=== PATIENT | female | born 1985 | race Two or more races ===

== ENCOUNTER 2019-04-16 19:06 | Inpatient (IN) | payer MEDICAID ==
[~2019-04-16] VITALS: Ht 152.5 cm; Wt 62.6 kg
[2019-04-16] MEDS: DEXT 5%/LR + PITOCIN 20UNITS/L 1,000 ML IV SCH ×2 (18:55→20:44)
[2019-04-16 20:26] LABS: BASOPHILS % 0.4 % (0.0-2.0); EOSINOPHILS % 1.5 % (0.0-5.0); HEMATOCRIT. 41.1 % (36.0-48.0); HEMOGLOBIN. 14.3 g/dL (12.0-16.0); LYMPHOCYTES % 29.8 % (20.0-50.0); MEAN CORPUSCULAR HEMOGLOBIN 32.6 pg (28.0-32.0); MEAN PLATELET VOLUME 9.4 fl (7.4-10.4); MONOCYTES % 10.1 % (2.0-8.0); NEUTROPHILS % 58.2 % (40.0-76.0); PLATELET 181 x1000/uL (130-400); RED BLOOD CELL COUNT 4.37 mill/uL (4.2-5.4); RED CELL DISTRIBUTION WIDTH 13.2 % (11.6-14.6)
[2019-04-16] MEDS ORDERED: METHYLERGONOVINE MALEATE 0.2 MG/ML IM PRN (20:45)
[2019-04-16 20:59] LABS: INR 0.9; PARTIAL THROMBOPLASTIN TIME 27.3 sec (23.4-31.0); PROTHROMBIN TIME 9.8 sec (9.6-11.0)
[2019-04-16 21:30] LABS: HEPATITIS B SURFACE ANTIGEN NEGATIVE
[2019-04-16 21:40] VITALS: BP 111/73
[2019-04-16 23:31] VITALS: BP 111/74
[2019-04-17] MEDS ORDERED: DEXT 5%/LR + PITOCIN 20UNITS/L 1,000 ML IV SCH (00:16)
[2019-04-17] MEDS ORDERED: DIPHENHYDRAMINE 25MG CAPSULE PO PRN (00:30)
[2019-04-17] MEDS ORDERED: METHYLERGONOVINE MALEATE 0.2 MG/ML IM PRN (00:30)
[2019-04-17] MEDS ORDERED: RHO(D) IMMUNE GLOBULIN 300 MCG/SYR IM PRN (00:30)
[2019-04-17] MEDS ORDERED: LANOLIN OINT 7GM TUBE TOP PRN (00:30)
[2019-04-17] MEDS ORDERED: IBUPROFEN 400MG TABLET PO PRN (00:30)
[2019-04-17 00:43] LABS: CLARITY URINE CLOUDY (CLEAR); KETONES URINE NEGATIVE (NEGATIVE); LEUKOCYTE ESTERASE URINE 1+ (NEGATIVE); NITRITE URINE NEGATIVE (NEGATIVE); OCCULT BLOOD URINE 3+ (NEGATIVE); PH URINE 7.5 (4.5-8.0); PROTEIN URINE NEGATIVE (NEGATIVE); SPECIFIC GRAVITY URINE 1.018 (1.005-1.030); UROBILINOGEN URINE 0.2 E.U./dL (0.2-1.0)
[2019-04-17 00:54] LABS: COLOR URINE BLOODY (YELLOW)
[2019-04-17 01:22] LABS: *AMPHETAMINES SCREEN URINE NEGATIVE (NEGATIVE); *BARBITURATES SCREEN URINE NEGATIVE (NEGATIVE); *COCAINE SCREEN URINE NEGATIVE (NEGATIVE); METHADONE URINE SCREEN NEGATIVE (NEGATIVE); OPIATES URINE SCREEN NEGATIVE (NEGATIVE)
[2019-04-17 01:23] LABS: *BENZODIAZEPINES SCREEN URINE NEGATIVE (NEGATIVE); CANNABINOID URINE SCREEN NEGATIVE (NEGATIVE); PHENCYCLIDINE URINE SCREEN NEGATIVE (NEGATIVE)
[2019-04-17] MEDS: IBUPROFEN 800MG TABLET PO PRN ×2 (01:41→16:16)
[2019-04-17 04:15] VITALS: BP 99/60
[2019-04-17 06:16] LABS: BASOPHILS % 0.4 % (0.0-2.0); EOSINOPHILS % 1.3 % (0.0-5.0); HEMATOCRIT. 38.6 % (36.0-48.0); LYMPHOCYTES % 20.7 % (20.0-50.0); MEAN CORPUSCULAR HEMOGLOBIN 31.7 pg (28.0-32.0); MEAN PLATELET VOLUME 8.8 fl (7.4-10.4); MONOCYTES % 7.1 % (2.0-8.0); NEUTROPHILS % 70.5 % (40.0-76.0); PLATELET 164 x1000/uL (130-400); RED BLOOD CELL COUNT 4.11 mill/uL (4.2-5.4); RED CELL DISTRIBUTION WIDTH 13.3 % (11.6-14.6)
[2019-04-17 09:00] VITALS: BP 104/67
[2019-04-17] MEDS: PRENATAL VIT/FE FUMARATE/FA TABLET PO SCH (13:06)
[2019-04-17 17:00] VITALS: BP 102/70
[2019-04-17 19:50] VITALS: BP 102/60
[2019-04-18] MEDS: IBUPROFEN 800MG TABLET PO PRN ×2 (00:53→06:46)
[2019-04-18 04:00] VITALS: BP 101/59
[2019-04-18 07:42] VITALS: BP 106/74
[2019-04-18] MEDS: PRENATAL VIT/FE FUMARATE/FA TABLET PO SCH (09:05)
== END 2019-04-18 11:55 | disposition home or self-care (01) | DRG 560 ==
LOC: OBSVTOIN 19:06 → 8 EST LDRP 19:06 → 8EST 21:19
PROVIDERS: ADMIT Obstetrics & Gynecology; ATTEND Obstetrics & Gynecology
PROC: 10E0XZZ Delivery of Products of Conception, External Approach (ICD-10-PCS; principal; 2019-04-16)
DX: O70.0 First degree perineal laceration during delivery (principal); D64.9 Anemia, unspecified; Z37.0 Single live birth; Z3A.38 38 weeks gestation of pregnancy; O99.02 Anemia complicating childbirth
CPT/HCPCS: 36415; 80305; 86592; 86703; 86762; 86850; 86900; 87340; J2590

== ENCOUNTER 2019-10-19 12:21 | Emergency (ER) | payer MEDICAID ==
[~2019-10-19] VITALS: Ht 165.1 cm; Wt 62.0 kg
[2019-10-19 13:10] VITALS: BP 128/75
[2019-10-19] MEDS ORDERED: BACITRACIN ZINC OINT UDPKT TOP ONE (15:15)
== END 2019-10-19 15:19 | disposition home or self-care (01) ==
LOC: ER 12:21
DX: S60.454A Superficial foreign body of right ring finger, initial encounter (principal); X58.XXXA Exposure to other specified factors, initial encounter; Y93.89 Activity, other specified; Y92.89 Other specified places as the place of occurrence of the external cause; Y99.8 Other external cause status
CPT/HCPCS: 99283; 99284

== ENCOUNTER 2019-12-13 12:03 | Emergency (ER) | payer MEDICAID ==
[~2019-12-13] VITALS: Ht 160 cm; Wt 54.0 kg
[2019-12-13 12:08] VITALS: BP 113/74
== END 2019-12-13 14:14 | disposition home or self-care (01) ==
LOC: ER 12:13
DX: J06.9 Acute upper respiratory infection, unspecified (principal); J02.9 Acute pharyngitis, unspecified; J04.0 Acute laryngitis
CPT/HCPCS: 71045; 81025; 99283

== ENCOUNTER 2025-05-02 21:39 | Emergency (ER) | payer MEDICAID ==
[~2025-05-02] VITALS: Ht 165.1 cm; Wt 62.0 kg
[2025-05-02 22:02] VITALS: RESP 14; O2SAT 98
[2025-05-02 23:03] LABS: BASOPHILS % 0.4 % (0.0-2.0); EOSINOPHILS % 1.8 % (0.0-5.0); HEMATOCRIT. 39.7 % (36.0-48.0); HEMOGLOBIN. 13.4 g/dL (12.0-16.0); LYMPHOCYTES % 21.1 % (20.0-50.0); MEAN CORPUSCULAR HEMOGLOBIN 30.9 pg (28.0-32.0); MEAN CORPUSCULAR HGB CONC 33.9 g/dL (31.0-37.0); MEAN CORPUSCULAR VOLUME 91.1 fL (81.0-99.0); MEAN PLATELET VOLUME 8.9 fl (7.4-10.4); NEUTROPHILS % 71.7 % (40.0-76.0); PLATELET 238 x1000/uL (130-400); RED BLOOD CELL COUNT 4.35 mill/uL (4.2-5.4); RED CELL DISTRIBUTION WIDTH 13.2 % (11.6-14.6); WHITE BLOOD COUNT 6.2 x1000/uL (4.5-11.0)
[2025-05-02 23:11] LABS: CHLORIDE 103 mEq/L (98-107); POTASSIUM 3.6 mEq/L (3.5-5.1); SODIUM 140 mEq/L (136-145)
[2025-05-02 23:12] LABS: CALCIUM 9.6 mg/dL (8.7-10.4); CARBON DIOXIDE 27 mEq/L (21-32); PROTHROMBIN TIME 10.5 sec (9.6-11.0)
[2025-05-02 23:17] LABS: CREATININE 0.7 mg/dL (0.6-1.0); GLUCOSE 151 mg/dL (70-105); UREA NITROGEN BLOOD 11 mg/dL (9-23)
[2025-05-02 23:19] LABS: ALANINE AMINOTRANSFERASE 11 IU/L (10-49); ALBUMIN 4.7 g/dL (3.2-4.8); ASPARTATE AMINOTRANSFERASE 16 IU/L (<34); BILIRUBIN DIRECT < 0.1 mg/dL (<=3.0)
[2025-05-02 23:20] LABS: BILIRUBIN TOTAL 0.4 mg/dL (0.1-1.0); PROTEIN TOTAL 7.4 g/dL (6.0-8.3)
[2025-05-02 23:32] LABS: CLARITY URINE CLOUDY (CLEAR); COLOR URINE YELLOW (YELLOW); GLUCOSE URINE TRACE (NEGATIVE); KETONES URINE NEGATIVE (NEGATIVE); LEUKOCYTE ESTERASE URINE NEGATIVE (NEGATIVE); NITRITE URINE NEGATIVE (NEGATIVE); OCCULT BLOOD URINE NEGATIVE (NEGATIVE); PROTEIN URINE TRACE (NEGATIVE); SPECIFIC GRAVITY URINE 1.033 (1.005-1.030)
[2025-05-02] MEDS: METOCLOPRAMIDE HCL 10MG TABLET PO ONE (23:54)
[2025-05-02] MEDS: ACETAMINOPHEN 500MG TABLET PO ONE (23:54)
[2025-05-02 23:56] VITALS: BP 103/73; PULSE 77; TEMP 36.8; O2SAT 99
[2025-05-03 00:12] LABS: HCG SCREEN NEGATIVE
[2025-05-03] MEDS: SUMATRIPTAN SUCCINATE 25MG TABLET PO ONE (00:13)
[2025-05-03 00:24] LABS: SQUAMOUS EPITHELIAL CELL URINE FEW /lpf (RARE/1+); WBC URINE 0-2 /hpf (0-2)
[2025-05-03 00:25] LABS: AMORPHOUS SEDIMENT URINE 1+ /lpf; RBC URINE NONE SEEN /hpf (0-2)
[2025-05-03 00:29] LABS: TRIPLE PHOSPHATE CRYSTAL URINE 1+ /lpf
[2025-05-03 00:30] LABS: BACTERIA URINE TRACE
[2025-05-03] MEDS ORDERED: ACET-2708 MT (00:49)
[2025-05-03] MEDS ORDERED: IMIT25 MT (00:49)
== END 2025-05-03 01:04 | disposition home or self-care (01) ==
LOC: ER 21:39
DX: R51.9 Headache, unspecified (principal); R11.10 Vomiting, unspecified; Z55.6 Problems related to health literacy; R10.9 Unspecified abdominal pain
CPT/HCPCS: 99284; 80076; 80048; 81003; 81025; 84703; 83690; 85025; 85610; 36415; J8597

== ENCOUNTER 2025-09-23 08:41 | Emergency (ER) | payer MEDICAID ==
[~2025-09-23] VITALS: Ht 165.1 cm; Wt 59.0 kg
[~2025-09-23 08:41] MED LIST: ACET-2708 MT; IMIT25 MT
[2025-09-23 08:52] VITALS: O2SAT 100
[2025-09-23] MEDS: ACETAMINOPHEN 325MG TABLET PO ONE (09:18)
[2025-09-23] MEDS ORDERED: TOPUD MT (10:03)
[2025-09-23 10:15] VITALS: BP 110/75; PULSE 75; RESP 16; TEMP 37.2; O2SAT 100
== END 2025-09-23 10:15 | disposition home or self-care (01) ==
LOC: ER 08:41
DX: R51.9 Headache, unspecified (principal); Z79.899 Other long term (current) drug therapy
CPT/HCPCS: 99284